=== PATIENT | female | born 1930 | race African-American/Black ===

== ENCOUNTER 2020-05-06 13:15 | Inpatient (IN) | payer MEDICARE, OTHER ==
[~2020-05-06] VITALS: Ht 157.5 cm; Wt 39.9 kg
--- NOTE | 2020-05-06 13:58 | NUR ---
Patient is medically cleared by ER doctor Robert for psych admission [facility]. Patient is admitted to M[facility] room 145-B , under the care of Dr. Fuentes & patient's internal medicine needs will be addressed by hospitalist FANTASMA Christopher. Belongings List completed. Initial medication list started in ER, but still for admitting doctors/MANAGER SWITCH to reconcile the medicines with the patient & family.
[2020-05-06] MEDS ORDERED: DILT-32 PO (14:00)
[2020-05-06] MEDS ORDERED: ACET-2154 PO (14:00)
[2020-05-06] MEDS ORDERED: GABA-532 PO (14:00)
[2020-05-06] MEDS ORDERED: LACT10SO PO (14:00)
[2020-05-06] MEDS ORDERED: ASPI81TA31 PO (14:00)
[2020-05-06] MEDS ORDERED: DONE5TAB34 PO (14:00)
[2020-05-06] MEDS ORDERED: OLAN2.5T3 PO (14:00)
[2020-05-06] MEDS ORDERED: LIDO30AD10 TD (14:00)
[2020-05-06] MEDS ORDERED: ATOR20TA PO (14:00)
[2020-05-06] MEDS ORDERED: ALBU90AE IH (14:00)
[2020-05-06] MEDS ORDERED: DOCU100C36 PO (14:00)
[2020-05-06] MEDS ORDERED: SERT25TA PO (14:00)
[2020-05-06] MEDS ORDERED: FLUT1DIS27 IH (14:00)
[2020-05-06] MEDS ORDERED: MELA3TAB41 PO (14:00)
[2020-05-06 14:10] VITALS: BP 120/74
[2020-05-06] MEDS ORDERED: LORAZEPAM 1 MG TABLET PO PRN (14:30)
[2020-05-06] MEDS ORDERED: ACETAMINOPHEN 325 MG TABLET PO PRN (14:30)
[2020-05-06] MEDS ORDERED: ZOLPIDEM 5 MG TABLET PO PRN (14:30)
[2020-05-06] MEDS ORDERED: MAGNESIUM HYDROXIDE 30 ML LIQUID UDC PO PRN (14:30)
[2020-05-06] MEDS ORDERED: MAG HYDROX/AL HYDROX/SIMETH 30 ML LIQUID UDC PO PRN (14:30)
[2020-05-06] MEDS ORDERED: MELATONIN 3 MG TABLET PO PRN (15:15)
[2020-05-06] MEDS ORDERED: LACTULOSE 20 G/30 ML LIQUID UDC PO PRN (15:15)
[2020-05-06] MEDS ORDERED: ALBUTEROL SULFATE 2.5 MG/3 ML NEBU NEB PRN (15:30)
--- NOTE | 2020-05-06 15:30 | NUR ---
1410 Admitted patient from ER placed on 5150m for gravely disabled. Patient refusing to eat and drink. Also patient locked herself in her home. Upon face to face, patient alert and ox4 with periods of forgetfulness. Dr. Fuentes and QUARRY PLANT CRUSHER OPERATOR , Rickie Christopher notified of the admission with order.
[2020-05-06] MEDS: GABAPENTIN 100 MG CAPSULE PO SCH (18:21)
[2020-05-06] MEDS: DOCUSATE SODIUM 100 MG CAPSULE PO SCH (18:21)
[2020-05-06 20:34] VITALS: BP 110/57
[2020-05-06] MEDS: ATORVASTATIN 20 MG TABLET PO SCH ×2 (21:00→21:15)
[2020-05-06] MEDS: DONEPEZIL 5 MG TABLET PO SCH ×2 (21:00→21:15)
--- NOTE | 2020-05-06 23:35 | NUR ---
PATIENT REFUSED QHS MEDICATION(LIPITOR AND ARICEPT) MULTIPLE REDIRECTION GIVEN YET, INEFFECTIVE. SHE STATED, "I DON'T TRUST WHAT YOU ARE GIVING ME.". WILL CONTINUE TO MONITOR.
[2020-05-07 06:36] LABS: *BLOOD, URINE NEGATIVE (NEGATIVE); *CLARITY,URINE SLIGHTLY CLOUDY (CLEAR); *COLOR,URINE YELLOW (YELLOW); *KETONES,URINE TRACE (NEGATIVE); *UROBILINOGEN,URINE 0.2 E.U./dl (NORMAL); LEUKOCYTE ESTERASE ,URINE TRACE (NEGATIVE); NITRITE, URINE NEGATIVE (NEGATIVE); UGLUCOSE NEGATIVE (NEGATIVE)
[2020-05-07 06:40] LABS: *BILIRUBIN,URIN 1+ (NEGATIVE)
--- NOTE | 2020-05-07 06:45 | NUR ---
PATIENT SLEPT FOR APPROX 8.00 HRS THROUGH THE NIGHT. SHE REFUSED BLOOD DRAWN THIS MORNING, SHE STATED, "YOU ARE NOT GETTING ANY BLOOD FROM ME". MULTIPLE REDIRECTION GIVEN HOWEVER, INEFFECTIVE. WILL TRY LATER.
[2020-05-07 07:30] VITALS: BP 92/56
[2020-05-07] MEDS: DILTIAZEM HCL CD 120 MG CAP.SR.24H PO SCH (09:00)
[2020-05-07] MEDS: DOCUSATE SODIUM 100 MG CAPSULE PO SCH ×2 (09:24→18:17)
[2020-05-07] MEDS: ASPIRIN 81 MG TAB.CHEW PO SCH (09:24)
[2020-05-07] MEDS: GABAPENTIN 100 MG CAPSULE PO SCH ×3 (09:24→18:17)
[2020-05-07] MEDS: LIDOCAINE 5% PATCH TD SCH (09:35)
[2020-05-07] MEDS: FLUTICASONE/VILANTEROL 1 EACH BLST.W.DEV INH SCH (09:52)
[2020-05-07 10:41] LABS: RBC,URINE 0-3 /HPF (0-3)
[2020-05-07 10:42] LABS: BACTERIA,URINE FEW /HPF (NONE SEEN); SQUAMOUS EPITHELIAL CELL,UR FEW /HPF (NONE SEEN)
--- NOTE | 2020-05-07 13:15 | NUR ---
DPOA/Family Contact: SW called the pts DPOA and daughter, Lizet ([phone]), and informed her that the pt is in the hospital and the discharge plan needs to be discussed. She stated that home does not seem like a fit environment for the pt and stated that she would like the pt to be discharged to one of her sister's homes so that she can have constant care. SIENNA asked for the number of the sister that she is referring to so that the plan can be discussed and she stated that she would call the SW back with that information.
--- NOTE | 2020-05-07 13:53 | NUR ---
Initial Discharge Plan: Pt currently resides in her home alone located at [address], [address], [place] [address]; ([phone]). Per pt, she would like to return to her home. Per Lizet MAYA ([phone]), she would like the pt to be discharged to one of her daughter's home. SIENNA will work with the MD and the pt regarding appropriate discharge planning. SW will form a safe and proper discharge.
--- NOTE | 2020-05-07 14:00 | NUR ---
Social Work Firearms Report (DOJ): Rap Artist completed and submitted a [employer] firearms report for 5150 grave disability certification. A copy of report has been placed in patient chart.
[2020-05-07 16:00] VITALS: BP 121/62
[2020-05-07 20:00] VITALS: BP 106/62
--- NOTE | 2020-05-07 20:30 | NUR ---
RECEIVED PATIENT SITTING IN THE NNEKA CHAIR. AWAKE AND A/0 X2. AMBULATORY WITH STAND BY ASSIST. MOOD IS SAD AND ANXIOUS. AFFECT IS BLUNTED. PLEASANT AND CALM WHEN APPROACHED. PATIENT IS HYPERVERBAL. COMPLIANT WITH MEDICATION REGIMEN. BED LOW AND LOCKED. BED ALARM IS ON. SAFETY MEASURES AND FALL PRECAUTIONS IN PLACE. V/S STABLE. WILL CONTINUE TO MONITOR.
[2020-05-07] MEDS: SULFAMETH/TRIMETH 800/160 MG TABLET PO SCH (21:16)
[2020-05-07] MEDS: DONEPEZIL 5 MG TABLET PO SCH (21:16)
[2020-05-07] MEDS: QUETIAPINE FUMARATE 25 MG TABLET PO SCH (21:17)
[2020-05-07] MEDS: ATORVASTATIN 20 MG TABLET PO SCH (21:17)
[2020-05-08 07:30] VITALS: BP 126/77
[2020-05-08] MEDS: DOCUSATE SODIUM 100 MG CAPSULE PO SCH ×2 (08:55→18:25)
[2020-05-08] MEDS: SULFAMETH/TRIMETH 800/160 MG TABLET PO SCH ×2 (08:55→20:45)
[2020-05-08] MEDS: GABAPENTIN 100 MG CAPSULE PO SCH ×3 (08:55→18:11)
[2020-05-08] MEDS: ASPIRIN 81 MG TAB.CHEW PO SCH (08:55)
[2020-05-08] MEDS: DILTIAZEM HCL CD 120 MG CAP.SR.24H PO SCH (08:55)
[2020-05-08] MEDS: LIDOCAINE 5% PATCH TD SCH (08:56)
[2020-05-08] MEDS: FLUTICASONE/VILANTEROL 1 EACH BLST.W.DEV INH SCH (08:56)
--- NOTE | 2020-05-08 11:00 | NUR ---
1000 patient c/o epigastric pain, maalox given with mild result. Candi MEEK made his rounds notified and examine patient with order. Stat EKG and troponin ordered . !024 Candi MEEK notified of EKG result with no new order.
--- NOTE | 2020-05-08 11:00 | NUR ---
CONSTRUCTION MANAGEMENT INSTRUCTOR, Christopher Notified regarding troponin result 0.017, normal with no new order
[2020-05-08 12:10] LABS: POTASSIUM 3.9 mmol/L (3.5-5.1)
[2020-05-08] MEDS: FAMOTIDINE 20 MG TABLET PO SCH ×2 (12:45→20:45)
[2020-05-08 16:00] VITALS: BP 120/61
--- NOTE | 2020-05-08 16:17 | NUR ---
SW Family Contact: Spoke with patient's daughter, Gracie ([phone]) who stated that they are going to take the patient home upon discharge. Melanie stated that the patient is going to be discharged to her home at this address [address], [facility] [address]. Gracie stated she will citrus picker the patient and take take her home home at the time of discharge.
--- NOTE | 2020-05-08 17:00 | NUR ---
Patient refused troponin level scheduled at 1643 - patient refused and became angry,
[2020-05-08 20:00] VITALS: BP 119/58
[2020-05-08] MEDS: QUETIAPINE FUMARATE 25 MG TABLET PO SCH (20:45)
[2020-05-08] MEDS: DONEPEZIL 5 MG TABLET PO SCH (20:45)
[2020-05-08] MEDS: ATORVASTATIN 20 MG TABLET PO SCH (20:45)
--- NOTE | 2020-05-09 05:00 | NUR ---
GPS/ RECEIVED PT IN TV ROOM UP IN NNEKA CHAIR, A/O X3. PT ON MONITOR FOR ABNORMAL LABS WITH C/O UPPER GASTRIC PAIN. NO NEW C/O AT THIS TIME. PT COOPERATIVE WITH ALL MEDICATIONS. LACTULOSE WAS GIVEN PER NO BM AND MONITORING EFFECTIVENESS. SKIN KEPT CLEAN . AND AWAITING AM BLOOD WORK. WILL MONITOR AND Q/15MINS HEAD COUNT ONGOING.
[2020-05-09 07:30] VITALS: BP 106/64
[2020-05-09] MEDS: GABAPENTIN 100 MG CAPSULE PO SCH ×3 (10:52→18:38)
[2020-05-09] MEDS: FAMOTIDINE 20 MG TABLET PO SCH ×2 (10:52→21:00)
[2020-05-09] MEDS: SULFAMETH/TRIMETH 800/160 MG TABLET PO SCH ×2 (10:52→21:00)
[2020-05-09] MEDS: LIDOCAINE 5% PATCH TD SCH (10:53)
[2020-05-09] MEDS: DOCUSATE SODIUM 100 MG CAPSULE PO SCH ×2 (10:53→18:38)
[2020-05-09] MEDS: ASPIRIN 81 MG TAB.CHEW PO SCH (10:53)
[2020-05-09] MEDS: DILTIAZEM HCL CD 120 MG CAP.SR.24H PO SCH (10:54)
[2020-05-09] MEDS: FLUTICASONE/VILANTEROL 1 EACH BLST.W.DEV INH SCH (10:56)
[2020-05-09 16:59] VITALS: BP 108/69
--- NOTE | 2020-05-09 20:00 | NUR ---
Received patient in her room sitting in her bed. she is noted A/O x 2. Poor insight and judgment is noted as to the reason for his admission to MHU. She is noted easily irritable; She stated, "Call my daughter, she needs to come and pick me up". Patient is reassured and redirected. She is somewhat redirectable. V/S stable. she is reassure for her safety. safety and fall precaution in place. will continue to monitor.
[2020-05-09] MEDS: QUETIAPINE FUMARATE 25 MG TABLET PO SCH (21:00)
[2020-05-09] MEDS: ATORVASTATIN 20 MG TABLET PO SCH (21:00)
[2020-05-09] MEDS: DONEPEZIL 5 MG TABLET PO SCH (21:00)
--- NOTE | 2020-05-09 23:00 | NUR ---
patient refused all her QHS medications, multiple redirection given, yet ineffective. She stated, "I don't need any medications, I am fine". Patient noted with poor insight and judgment as to the reason for her admission to MHU. will continue to monitor.
--- NOTE | 2020-05-10 01:00 | NUR ---
patient noted talking to herself in her sleep. will continue to monitor.
[2020-05-10 07:30] VITALS: BP 120/69
[2020-05-10] MEDS: SULFAMETH/TRIMETH 800/160 MG TABLET PO SCH ×2 (09:00→21:00)
[2020-05-10] MEDS: FAMOTIDINE 20 MG TABLET PO SCH ×2 (09:00→21:00)
[2020-05-10] MEDS: DOCUSATE SODIUM 100 MG CAPSULE PO SCH ×2 (09:00→17:00)
[2020-05-10] MEDS: LIDOCAINE 5% PATCH TD SCH (09:04)
[2020-05-10] MEDS: GABAPENTIN 100 MG CAPSULE PO SCH ×3 (09:05→17:29)
[2020-05-10] MEDS: FLUTICASONE/VILANTEROL 1 EACH BLST.W.DEV INH SCH (09:05)
[2020-05-10] MEDS: ASPIRIN 81 MG TAB.CHEW PO SCH (09:06)
[2020-05-10] MEDS: DILTIAZEM HCL CD 120 MG CAP.SR.24H PO SCH (09:06)
[2020-05-10 16:00] VITALS: BP 114/46
--- NOTE | 2020-05-10 17:42 | NUR ---
Received patient this am, awake, alert and oriented. Slightly grumpy and refused to take most of her medications except her " Leg pills and heart pills, but no pills for my head cause I am not crazy." Assisted patient up to chair and patient participated in group. Patient was calm and compliant today. Monitored for safety and behavior escalation, VS were stable.
[2020-05-10 20:00] VITALS: BP 118/55
[2020-05-10] MEDS: ATORVASTATIN 20 MG TABLET PO SCH (21:00)
[2020-05-10] MEDS: QUETIAPINE FUMARATE 25 MG TABLET PO SCH (21:03)
[2020-05-10] MEDS: DONEPEZIL 5 MG TABLET PO SCH (21:03)
--- NOTE | 2020-05-10 21:15 | NUR ---
RECEIVED PATIENT IN HER ROOM SITTING IN BED. SHE IS NOTED A/O X 2. CALM AND PLEASANT UPON APPROACHED. HOWEVER, SHE CONTINUE ASKING TO BE TAKEN BACK TO HER HOME. PATIENT IS REASSURED AND REDIRECTED. SHE IS NOTED VERY SELECTIVE WITH HER MEDICATION REGIMENT. SHE WAS ABLE TO TAKE HER SEROQUEL AND ARICEPT QHS BUT REFUSED BACTRIM ,PEPCID AND LIPITOR. MULTIPLE REDIRECTIONS GIVEN YET INEFFECTIVE. V/S STABLE AT THIS TIME. PATIENT IS REASSURED FOR HER SAFETY, SAFETY AND FALL PRECAUTION IN PLACE. WILL CONTINUE TO MONITOR.
[2020-05-11 07:30] VITALS: BP 127/76
[2020-05-11] MEDS: FLUTICASONE/VILANTEROL 1 EACH BLST.W.DEV INH SCH (09:00)
[2020-05-11] MEDS: SULFAMETH/TRIMETH 800/160 MG TABLET PO SCH ×2 (09:00→21:18)
[2020-05-11] MEDS: DOCUSATE SODIUM 100 MG CAPSULE PO SCH ×2 (09:00→16:31)
[2020-05-11] MEDS: FAMOTIDINE 20 MG TABLET PO SCH ×2 (09:01→21:18)
[2020-05-11] MEDS: GABAPENTIN 100 MG CAPSULE PO SCH ×3 (09:01→16:31)
[2020-05-11] MEDS: ASPIRIN 81 MG TAB.CHEW PO SCH (09:01)
[2020-05-11] MEDS: DILTIAZEM HCL CD 120 MG CAP.SR.24H PO SCH (09:01)
[2020-05-11] MEDS: LIDOCAINE 5% PATCH TD SCH (09:02)
[2020-05-11 15:25] VITALS: BP 113/52
[2020-05-11 20:00] VITALS: BP 126/60
[2020-05-11] MEDS: QUETIAPINE FUMARATE 25 MG TABLET PO SCH (21:18)
[2020-05-11] MEDS: ATORVASTATIN 20 MG TABLET PO SCH (21:18)
[2020-05-11] MEDS: DONEPEZIL 5 MG TABLET PO SCH (21:18)
[2020-05-12 07:30] VITALS: BP 109/54
[2020-05-12] MEDS: SULFAMETH/TRIMETH 800/160 MG TABLET PO SCH ×2 (08:50→21:00)
[2020-05-12] MEDS: GABAPENTIN 100 MG CAPSULE PO SCH ×3 (08:51→17:00)
[2020-05-12] MEDS: FAMOTIDINE 20 MG TABLET PO SCH ×2 (08:51→21:00)
[2020-05-12] MEDS: DILTIAZEM HCL CD 120 MG CAP.SR.24H PO SCH (08:51)
[2020-05-12] MEDS: DOCUSATE SODIUM 100 MG CAPSULE PO SCH ×2 (08:51→17:00)
[2020-05-12] MEDS: FLUTICASONE/VILANTEROL 1 EACH BLST.W.DEV INH SCH (08:51)
[2020-05-12] MEDS: ASPIRIN 81 MG TAB.CHEW PO SCH (08:51)
[2020-05-12] MEDS: LIDOCAINE 5% PATCH TD SCH (08:53)
--- NOTE | 2020-05-12 10:37 | NUR ---
Social Work Note: structural steel ironworker spoke with patient's daughter Sabiha ([phone]) and discussed patient's discharge plan.
[2020-05-12 16:14] VITALS: BP 131/71
[2020-05-12 20:00] VITALS: BP 114/66
[2020-05-12] MEDS: DONEPEZIL 5 MG TABLET PO SCH (21:00)
[2020-05-12] MEDS: QUETIAPINE FUMARATE 25 MG TABLET PO SCH (21:00)
[2020-05-12] MEDS: ATORVASTATIN 20 MG TABLET PO SCH (21:00)
--- NOTE | 2020-05-12 22:02 | NUR ---
Received pt resting in bed. No acute distress noted. Denies SI/HI. No complaints of pain/ discomfort. Pt refused all due meds. Risks and benefits explained. Offered x3, pt still refused. Safety measures maintained. Will continue to monitor.
[2020-05-13 07:30] VITALS: BP 145/65
[2020-05-13] MEDS: FLUTICASONE/VILANTEROL 1 EACH BLST.W.DEV INH SCH (09:03)
[2020-05-13] MEDS: GABAPENTIN 100 MG CAPSULE PO SCH ×3 (09:03→17:26)
[2020-05-13] MEDS: DILTIAZEM HCL CD 120 MG CAP.SR.24H PO SCH (09:03)
[2020-05-13] MEDS: FAMOTIDINE 20 MG TABLET PO SCH ×2 (09:03→21:22)
[2020-05-13] MEDS: ASPIRIN 81 MG TAB.CHEW PO SCH (09:03)
[2020-05-13] MEDS: DOCUSATE SODIUM 100 MG CAPSULE PO SCH ×2 (09:04→17:26)
[2020-05-13] MEDS: SULFAMETH/TRIMETH 800/160 MG TABLET PO SCH (09:06)
[2020-05-13] MEDS: LIDOCAINE 5% PATCH TD SCH (09:06)
--- NOTE | 2020-05-13 13:03 | NUR ---
Social Work Individual Therapy: production utility worker met with patient for brief counseling. production utility worker assessed for patient's impaired judgement. Patient was tearful while this filing writer was providing brief therapy. Patient began to cry and stated that "she wishes that she was rich and that she can help the poor". This filing writer provided emotional support and patient stopped crying. Patient then began to state that she "wishes that she had a better relationship with her other daughter who she claims is jealous of her". This filing writer actively listened to patient and had to re-direct pt multiple times.
[2020-05-13 16:00] VITALS: BP 114/62
[2020-05-13 20:15] VITALS: BP 114/50
[2020-05-13] MEDS: ATORVASTATIN 20 MG TABLET PO SCH (21:22)
[2020-05-13] MEDS: QUETIAPINE FUMARATE 25 MG TABLET PO SCH (21:22)
[2020-05-13] MEDS: DONEPEZIL 5 MG TABLET PO SCH (21:22)
--- NOTE | 2020-05-13 22:43 | NUR ---
Received patient in the hallway, interacts with staff, calm and cooperative. Medication compliant. Patient stated "they give me a lot of mediation, even though I don't need it." No sign or symptom of respiratory distress, breathing even, unlabored. No indication of pain or discomfort. No behavioral issue. Will remain in psych facility for further evaluation and treatment.
[2020-05-14 07:30] VITALS: BP 135/60
[2020-05-14] MEDS: ASPIRIN 81 MG TAB.CHEW PO SCH (09:30)
[2020-05-14] MEDS: LIDOCAINE 5% PATCH TD SCH (09:30)
[2020-05-14] MEDS: FAMOTIDINE 20 MG TABLET PO SCH ×2 (09:30→21:17)
[2020-05-14] MEDS: DOCUSATE SODIUM 100 MG CAPSULE PO SCH ×2 (09:30→16:51)
[2020-05-14] MEDS: GABAPENTIN 100 MG CAPSULE PO SCH ×3 (09:30→17:11)
[2020-05-14] MEDS: DILTIAZEM HCL CD 120 MG CAP.SR.24H PO SCH (09:32)
[2020-05-14] MEDS: FLUTICASONE/VILANTEROL 1 EACH BLST.W.DEV INH SCH (09:32)
[2020-05-14] MEDS: ENSURE ENLIVE (VAN) 240 ML LIQUID PO SCH ×2 (15:44→17:13)
[2020-05-14 16:46] VITALS: BP 141/63
--- NOTE | 2020-05-14 19:40 | NUR ---
Patient is AAO x 2. No acute distress noted. Vital signs stable for patient. patient compliant with care and medications therapy throughout shift. patient compliant with meds and tolerated well. Pt. is very aware of medications. patient also noted participating in activities. Stand by assist for self care. Denies any pain or SI during assessment. Safety measure in place, needs attended, endorsed to next shift and will continue with care.
[2020-05-14] MEDS: ATORVASTATIN 20 MG TABLET PO SCH (21:17)
[2020-05-14] MEDS: QUETIAPINE FUMARATE 25 MG TABLET PO SCH (21:17)
[2020-05-14] MEDS: DONEPEZIL 5 MG TABLET PO SCH (21:17)
[2020-05-14 21:28] VITALS: BP 112/63
--- NOTE | 2020-05-15 07:05 | NUR ---
GPS: REMAIN CALM AND COOPERATIVE WITH MEDS AND CARE. SLEPT 7.30 HRS THROUGH THE NIGHT.
[2020-05-15 08:30] VITALS: BP 158/59
[2020-05-15] MEDS: GABAPENTIN 100 MG CAPSULE PO SCH (08:57)
[2020-05-15] MEDS: DOCUSATE SODIUM 100 MG CAPSULE PO SCH ×2 (08:57→17:32)
[2020-05-15] MEDS: FAMOTIDINE 20 MG TABLET PO SCH ×2 (08:57→20:40)
[2020-05-15] MEDS: ASPIRIN 81 MG TAB.CHEW PO SCH (08:57)
[2020-05-15] MEDS: FLUTICASONE/VILANTEROL 1 EACH BLST.W.DEV INH SCH (08:58)
[2020-05-15] MEDS: DILTIAZEM HCL CD 120 MG CAP.SR.24H PO SCH (08:59)
[2020-05-15] MEDS: LIDOCAINE 5% PATCH TD SCH (09:25)
[2020-05-15] MEDS: ENSURE ENLIVE (VAN) 240 ML LIQUID PO SCH ×3 (09:56→17:32)
--- NOTE | 2020-05-15 11:39 | NUR ---
Social Work Coordination of Care: electrical line worker contacted patients doctor office and spoke with Nella who scheduled an appointment. Patient will be following up with her primary care physician Dr. Carlito Miramontes N [facility] [address] [address] ([phone]) and has an appointment scheduled on May 20 at 2:15PM. Nella ([phone]) and sent patient's clinicals. electrical line worker contacted [facility] and spoke with Kelli ([phone]) and scheduled an intake evaluation for psychiatrist on May 18 at 11AM via telephone.
--- NOTE | 2020-05-15 11:44 | NUR ---
Social Work Family Contact: garage worker contacted patient's FRANCESCO Keiko ([phone]) who stated that she will spanish moss picker patient at 11AM on May 16 (Monday).
--- NOTE | 2020-05-15 13:11 | NUR ---
Social Work Individual Therapy: steam table worker met with patient for brief counseling. steam table worker assessed for patient's impaired judgement. Patient is excited that she will be returning back home to her daughter. Patient stated that she loves her daughter and she takes good care of her. steam table worker actively listened.
--- NOTE | 2020-05-15 13:15 | NUR ---
Social Work Monday Discharge Note: Patient will be discharged home May 16Monday; back to [address] [place] [id number] with her daughter/DPOA, Ranulfo ([phone]). Ranulfo MAYA is aware and agreeable with patients discharge plans and will picked edge sewing machine operator patient at 11AM on May 16. Patient is aware and agreeable with discharge plan. Patient is alert and oriented x3. Patient will be following up with her (primary care physician) Dr. Esteban [address] [place] [address] ([phone]) and has an appointment scheduled on May 20 at 2:15PM. Patient is referred to [facility], [address] [place] [address]; ([phone]) for intake evaluation (psychiatrist) on May 18 at 11AM VIA TELEPHONE. Patient is also referred to [facility], [facility]. ( ) dana Sloan and will be admitted upon arrival home today. Patient will have medication management, shower assistance, physical therapy, and nurse visits several times a week. Patient was also provided with outpatient mental health resources to [facility] , and the [facility] [facility] . Patient was provided with a brief substance abuse intervention and referred to the following substance abuse programs: [facility] Substance Abuse Self-helpline ([phone]); [facility] [address] [place] [address] ([phone]); [facility] [address] [facility] [address] ([phone]); [facility] ([phone]); [facility] ([phone]); [facility] ([phone]); [facility] ([phone]). Patient presents with euthymic mood and congruent affect.
[2020-05-15 15:39] VITALS: BP 99/50
[2020-05-15 20:00] VITALS: BP 130/61
[2020-05-15] MEDS: DONEPEZIL 5 MG TABLET PO SCH (20:40)
[2020-05-15] MEDS: QUETIAPINE FUMARATE 25 MG TABLET PO SCH (20:40)
[2020-05-15] MEDS: ATORVASTATIN 20 MG TABLET PO SCH (20:40)
[2020-05-15] MEDS ORDERED: GABAPENTIN 300 MG CAPSULE PO SCH (21:00)
--- NOTE | 2020-05-16 04:16 | NUR ---
GPS: PT A/OX3. COOPERATIVE WITH CARE AND MEDICATIONS. NO C/O PAIN OR DISCOMFORT. PT ON SCHEDULED D/C HOME IN AM. DENIED SI, NO INTENT TO HARM SELF OR OTHERS. PT AMBULATORY WITH GEOLOGICAL E LOGGER. NO NEW CHANGES AND PT SLEEPING COMFORTABLE. Q15/MINS HEAD COUNT ONGOING.
[2020-05-16 07:30] VITALS: BP 106/67
[2020-05-16] MEDS: FAMOTIDINE 20 MG TABLET PO SCH (09:28)
[2020-05-16] MEDS: DOCUSATE SODIUM 100 MG CAPSULE PO SCH (09:28)
[2020-05-16] MEDS: ASPIRIN 81 MG TAB.CHEW PO SCH (09:29)
[2020-05-16 09:31] VITALS: BP 106/67
[2020-05-16] MEDS: DILTIAZEM HCL CD 120 MG CAP.SR.24H PO SCH (09:31)
[2020-05-16] MEDS: FLUTICASONE/VILANTEROL 1 EACH BLST.W.DEV INH SCH (09:32)
[2020-05-16] MEDS: LIDOCAINE 5% PATCH TD SCH (09:32)
[2020-05-16] MEDS: ENSURE ENLIVE (VAN) 240 ML LIQUID PO SCH (09:40)
--- NOTE | 2020-05-16 12:30 | NUR ---
1130 Discharged instructios given to the patient regarding medications to continue and instructed to filled the prescriptions to her pharmacy, patient verbalized understanding. Patient daughter, Jimmy came and also instructed of medications to continue at home, prescriptions given and instructed to filled to patient pharmacy- daughter verbalized understanding. 1215 Patient discharged home with daughter via private car ,stable condition. Patient denies SI/HI. No delusion. No hallucination noted.
== END 2020-05-16 12:15 | disposition home health service (06) | DRG 885 ==
LOC: ER 13:15 → GPS 13:54
PROVIDERS: ADMIT Psychiatry & Neurology Psychiatry; ATTEND Nurse Practitioner Acute Care
DX: F29 Unspecified psychosis not due to a substance or known physiological condition (principal); F03.91 Unspecified dementia, unspecified severity, with behavioral disturbance; E87.0 Hyperosmolality and hypernatremia; N39.0 Urinary tract infection, site not specified; M06.9 Rheumatoid arthritis, unspecified; J44.9 Chronic obstructive pulmonary disease, unspecified; E86.0 Dehydration; E86.1 Hypovolemia; G62.9 Polyneuropathy, unspecified; I10 Essential (primary) hypertension; I25.10 Atherosclerotic heart disease of native coronary artery without angina pectoris; I25.2 Old myocardial infarction; M19.90 Unspecified osteoarthritis, unspecified site; Z73.6 Limitation of activities due to disability; Z95.0 Presence of cardiac pacemaker; K21.9 Gastro-esophageal reflux disease without esophagitis; R07.89 Other chest pain; Z79.899 Other long term (current) drug therapy
CPT/HCPCS: 36415; 70030-TC; 83690; 83921; 85651; 87086; 93005; A4663